=== PATIENT | male | born 1995 | race American Indian/Alaskan Native ===

== ENCOUNTER 2017-06-11 19:19 | Emergency (ER) | payer SELFPAY ==
[2017-06-11 22:11] LABS: Bilirubin,Urine NEG (Negative); Blood,Urine NEG (Negative); Ketones,Urine TR mg/dL (Negative); Leukocyte Esterase,Urine NEG (Negative); Mucus,Urine FEW /HPF; Nitrite,Urine NEG (Negative); Urobilinogen,Urine < 2.0 mg/dL (<2.0)
[2017-06-12 01:20] VITALS: BP 120/81
[2017-06-12] MEDS ORDERED: XYLOCAINE 1% MPF 5 mL INFILTRATI ONE (02:15)
[2017-06-12] MEDS ORDERED: ZITHROMAX PO ONE (02:15)
[2017-06-12] MEDS ORDERED: ROCEPHIN IM ONE (02:15)
--- NOTE | 2017-06-12 02:16 | Emergency Department Report ---
ED Male HPI - General Chief complaint: Urogenital-Male Stated complaint: LERNER WHEN URINATING Time Seen by Provider: 06/12/17 02:12 Source: patient Mode of arrival: Ambulatory Limitations: No Limitations - History of Present Illness Initial comments: 22-year-old male past medical history many and gonorrhea presents with complaint of dysuria and possible slight penile discharge. Patient states he has unprotected sex with multiple female partners in the last 2 months. Denies any fevers chills abdominal pain testicular swelling rectal pain no nausea or vomiting. States he is concerned he may have been exposed to chlamydia complaining of some dysuria. MD Complaint: dysuria Onset/Timin -: days(s) Location: penis Radiation: none Severity: mild Quality: burning Consistency: constant - Related Data Previous Rx's Medication Instructions Recorded Last Taken Type metroNIDAZOLE [Flagyl TAB] 500 mg PO Q12HR #14 tab 06/12/17 Unknown Rx Allergies Allergy/AdvReac Type Severity Reaction Status Date / Time No Known Allergies Allergy Verified 06/11/17 20:29 ED Review of Systems ROS: Stated complaint: LERNER WHEN URINATING Other details as noted in HPI Constitutional: denies: chills, fever Eyes: denies: eye pain, eye discharge, vision change ENT: denies: ear pain, throat pain Respiratory: denies: cough, shortness of breath, wheezing Cardiovascular: denies: chest pain, palpitations Endocrine: no symptoms reported Gastrointestinal: denies: abdominal pain, nausea, diarrhea Genitourinary: as per HPI, dysuria, discharge (possible discharge). denies: urgency Musculoskeletal: denies: back pain, joint swelling, arthralgia Skin: denies: rash, lesions Neurological: denies: headache, weakness, paresthesias Psychiatric: denies: anxiety, depression Hematological/Lymphatic: denies: easy bleeding, easy bruising ED Past Medical Hx - Past Medical History Previous Medical History?: No - Surgical History Past Surgical History?: No - Social History Smoking Status: Current Every Day Smoker Substance Use Type: Alcohol, Marijuana - Medications Home Medications: Home Medications Medication Instructions Recorded Confirmed Last Taken Type metroNIDAZOLE [Flagyl TAB] 500 mg PO Q12HR #14 tab 06/12/17 Unknown Rx ED Physical Exam - General Limitations: No Limitations General appearance: alert, in no apparent distress - Head Head exam: Present: atraumatic, normocephalic - Eye Eye exam: Present: normal appearance, PERRL, EOMI - ENT ENT exam: Present: mucous membranes moist - Neck Neck exam: Present: normal inspection - Respiratory Respiratory exam: Present: normal lung sounds bilaterally. Absent: respiratory distress - Cardiovascular Cardiovascular Exam: Present: regular rate, normal rhythm. Absent: systolic murmur, diastolic murmur, rubs, gallop - GI/Abdominal GI/Abdominal exam: Present: soft, normal bowel sounds - Rectal Rectal exam: Present: deferred - exam: Present: normal inspection External exam: Present: normal external exam - Extremities Exam Extremities exam: Present: normal inspection - Back Exam Back exam: Present: normal inspection - Neurological Exam Neurological exam: Present: alert, oriented X3 - Psychiatric Psychiatric exam: Present: normal affect, normal mood - Skin Skin exam: Present: warm, dry, intact, normal color. Absent: rash ED Course Vital Signs 06/11/17 06/12/17 20:29 01:19 Temperature 98.0 F 97.9 F Pulse Rate 100 H 88 Respiratory 20 18 Rate Blood Pressure 116/72 Blood Pressure 120/81 [Left] O2 Sat by Pulse 96 98 Oximetry ED Medical Decision Making - Medical Decision Making A/P: Urethritis 1-empiric treatment with ceftriaxone and azithromycin 2-follow-up with primary care doctor 3- 4- Critical care attestation.: If time is entered above; I have spent that time in minutes in the direct care of this critically ill patient, excluding procedure time. ED Disposition Clinical Impression: Urethritis Disposition: DC-01 TO HOME OR SELFCARE Is pt being admited?: No Does the pt Need Aspirin: No Condition: Stable Instructions: Nonspecific Urethritis in Men (ED), Safe Sex (ED) Prescriptions: metroNIDAZOLE [Flagyl TAB] 500 mg PO Q12HR #14 tab Referrals[facility] [Provider Group] - 3-5 Days [facility] [Provider Group] - 3-5 Days Forms: STI Treatment and Prevention, Work/School Release Form(ED) Time of Disposition: 02:14
== END 2017-06-12 02:45 | disposition home or self-care (01) ==
LOC: ED 19:19
DX: N34.2 Other urethritis (principal); F17.200 Nicotine dependence, unspecified, uncomplicated; F12.10 Cannabis abuse, uncomplicated
CPT/HCPCS: 81001; 96372; 99283; J0696

== ENCOUNTER 2017-06-24 09:15 | Emergency (ER) | payer BC ==
[2017-06-24 10:03] VITALS: BP 129/86
--- NOTE | 2017-06-24 10:06 | Emergency Department Report ---
Entered by MONSE BENNETT, acting as scribe for DENIS HOUSTON NP. Chief Complaint: Urogenital-Male Stated Complaint: BURNING DURING URINATION Time Seen by Provider: 06/24/17 09:58 - HPI History of Present Illness: 22 y/o male presents with dysuria that started x days ago. Pt was seen here recently and given antibiotics for same Sx. He states he used ETOH with the medication and doesn't believe it worked. Sx include penile irritation. pt denies n/v or penile irritation. Pt states that after he was treated initially, he denies having sex with his previous partner. Pt endorses tobacco use and ETOH use. - ROS Review of Systems: +penile irritation +dysuria -n/v -rash on genitalia - Exam Vital Signs: Vital Signs 06/24/17 10:01 Temperature 98.8 F Pulse Rate 99 H Respiratory 16 Rate Blood Pressure 129/86 O2 Sat by Pulse 100 Oximetry Physical Exam: Pt looks well, non-toxic Pt has steady gait *Male exam not conducted in [facility] screening note: Focused history and physical exam performed. Due to findings the following was ordered: labs ED Disposition for [place] Condition: Stable This documentation as recorded by the scribSABRINA samuels RYAN,accurately reflects the service I personally performed and the decisions made by ,DENIS HOUSTON , NURSE'S ASSISTANT.
[2017-06-24 10:46] LABS: Bilirubin,Urine NEG (Negative); Blood,Urine NEG (Negative); Ketones,Urine NEG (Negative); Leukocyte Esterase,Urine NEG (Negative); Mucus,Urine FEW /HPF; Nitrite,Urine NEG (Negative); Protein,Urine <15 mg/dL mg/dL (Negative); Urobilinogen,Urine < 2.0 mg/dL (<2.0); WBC,Urine < 1.0 /HPF (0.0-6.0)
--- NOTE | 2017-06-24 12:11 | Emergency Department Report ---
ED Male HPI - General Chief complaint: Urogenital-Male Stated complaint: BURNING DURING URINATION Time Seen by Provider: 06/24/17 09:58 Source: patient Mode of arrival: Ambulatory Limitations: No Limitations - History of Present Illness Initial comments: patient is a 22-year-old male who presents due to penile pain x 2 days. Patient stated he also has burning sensation and irritation with urination. Patient states that he was treated for same symptoms 2 weeks ago. Patient denies any penile discharge or penile rash. Patient denies any hematuria or frequency. Patient denies any nausea vomiting or diarrhea. Patient states that he has abdominal bloating and has not had a bowel movement since 2 days ago. MD Complaint: other (penile soreness) Onset/Timin -: days(s) Location: penis Radiation: none Severity: moderate Quality: burning Consistency: intermittent Improves with: none Worsens with: urination denies other symptoms - Related Data Previous Rx's Medication Instructions Recorded Last Taken Type metroNIDAZOLE [Flagyl TAB] 500 mg PO Q12HR #14 tab 06/12/17 Unknown Rx Ciprofloxacin HCl [Ciprofloxacin 500 mg PO BID #14 tablet 06/24/17 Unknown Rx TAB] Clotrimazole 1% [Lotrimin] 1 applic TP BID #1 tube 06/24/17 Unknown Rx Allergies Allergy/AdvReac Type Severity Reaction Status Date / Time No Known Allergies Allergy Verified 06/11/17 20:29 ED Review of Systems ROS: Stated complaint: BURNING DURING URINATION Other details as noted in HPI Comment: All other systems reviewed and negative Constitutional: no symptoms reported. denies: chills, diaphoresis, fever, malaise, weakness Eyes: denies: eye pain, eye discharge, vision change ENT: denies: ear pain, throat pain, dental pain, hearing loss, epistaxis, congestion Gastrointestinal: abdominal pain (bloating). denies: nausea, vomiting, diarrhea , constipation, hematemesis, melena Genitourinary: dysuria, other (penile soreness and irritation). denies: urgency , frequency, hematuria, discharge, testicular pain, testicular mass Musculoskeletal: denies: back pain Skin: denies: rash ED Past Medical Hx - Past Medical History Previous Medical History?: No - Surgical History Past Surgical History?: No - Social History Smoking Status: Current Every Day Smoker Substance Use Type: Alcohol - Medications Home Medications: Home Medications Medication Instructions Recorded Confirmed Last Taken Type metroNIDAZOLE [Flagyl TAB] 500 mg PO Q12HR #14 tab 06/12/17 Unknown Rx Ciprofloxacin HCl [Ciprofloxacin 500 mg PO BID #14 tablet 06/24/17 Unknown Rx TAB] Clotrimazole 1% [Lotrimin] 1 applic TP BID #1 tube 06/24/17 Unknown Rx ED Physical Exam - General Limitations: No Limitations General appearance: alert, in no apparent distress - Head Head exam: Present: atraumatic, normocephalic - Neck Neck exam: Present: normal inspection - Respiratory Respiratory exam: Present: normal lung sounds bilaterally - GI/Abdominal GI/Abdominal exam: Present: soft. Absent: distended, tenderness, guarding, rebound, rigid - exam: Present: other (penile soreness and irritation). Absent: testicular tenderness, urethral discharge, scrotal swelling, vertical testicular lie, circumcision - Extremities Exam Extremities exam: Present: normal inspection - Back Exam Back exam: Present: normal inspection, full ROM. Absent: tenderness - Neurological Exam Neurological exam: Present: alert, oriented X3 - Psychiatric Psychiatric exam: Present: normal affect, normal mood - Skin Skin exam: Present: warm, dry, intact ED Course Vital Signs 06/24/17 10:01 Temperature 98.8 F Pulse Rate 99 H Respiratory 16 Rate Blood Pressure 129/86 O2 Sat by Pulse 100 Oximetry ED Medical Decision Making - Medical Decision Making Patient was in no acute distress, patient had irritation around his glans penis and shaft of his penis. Patient has no testicular tenderness, no penile discharge. Urinalysis was normal. Patient was discharged with ciprofloxacin and lotrimin cream. patient was given information to follow up with a urologist. Patient was told to take a laxative for his constipation. Patient was told to return for any complications. - Differential Diagnosis jock itch, UTI, urethritis Critical care attestation.: If time is entered above; I have spent that time in minutes in the direct care of this critically ill patient, excluding procedure time. ED Disposition Clinical Impression: Cutaneous candidiasis, Dysuria Disposition: DC-01 TO HOME OR SELFCARE Is pt being admited?: No Does the pt Need Aspirin: No Condition: Good Instructions: Urinary Tract Infection in Men (ED), Jock Itch (ED) Additional Instructions: Take ciprofloxacin 500 mg twice a day for 7 days. Apply Lotrimin cream to groin area. Follow-up at the provided urologist for any complications. Prescriptions: Ciprofloxacin HCl [Ciprofloxacin TAB] 500 mg PO BID #14 tablet Clotrimazole 1% [Lotrimin] 1 applic TP BID #1 tube Referrals: PRIMARY CARE, [Primary Care Provider] - 3-5 Days [facility] [Outside] - 3-5 Days [facility] [Provider Group] - 3-5 Days Time of Disposition: 12:15
== END 2017-06-24 12:19 | disposition home or self-care (01) ==
LOC: ED 09:15
DX: B37.49 Other urogenital candidiasis (principal); R30.0 Dysuria; F17.200 Nicotine dependence, unspecified, uncomplicated
CPT/HCPCS: 81001; 87591; 99283